=== PATIENT | male | born 1965 | race Asian ===

== ENCOUNTER 2018-02-16 04:36 | Inpatient (IN) | payer BC ==
[2018-02-16] VITALS (7 sets, daily range): BP systolic 125–158; BP diastolic 71–83
[~2018-02-16] VITALS: Ht 160 cm; Wt 58.1 kg
[2018-02-16] MEDS ORDERED: ONDANSETRON HCL 4MG/2ML INJ IV STA (04:41)
[2018-02-16] MEDS ORDERED: IPRATROPIUM BROMIDE (0.02%) 0.5MG/2.5ML NEB HHN STA (04:41)
[2018-02-16] MEDS ORDERED: LABETALOL HCL 20MG/4ML CARPUJECT IV ONE (04:45)
[2018-02-16] MEDS ORDERED: LABETALOL 5MG/ML SYR 20 MG/4 ML SYRINGE IV NR (05:00)
[2018-02-16] MEDS ORDERED: ALBUTEROL (0.083%) 2.5MG/3ML NEB HHN SCH (05:00)
[2018-02-16 05:11] LABS: CHLORIDE 92 mEq/L (98-107)
[2018-02-16 05:31] LABS: BG BASE EXCESS 0.4 mmol/L (-2.0-2.0); BG BILEVEL POS AIRWAY PRESSURE 18/5; BG CARBOXYHEMOGLOBIN 4.2 % (0.5-1.5); BG DEOXYHEMOGLOBIN 0.4 % (0.0-5.0); BG FRACTION INSPIRED OXYGEN 100; BG HCO3 ACT 24.9 mmol/L (22.0-26.0); BG METHEMOGLOBIN 0.3 % (0.0-1.5); BG OXYGEN SATURATION 99.6 % (92.0-98.5); BG OXYHEMOGLOBIN 95.1 % (94.0-97.0); BG PCO2 39.4 mmHg (35.0-45.0); BG PH 7.418 (7.350-7.450); BG PO2 464.1 mmHg (75.0-100.0); BG SAMPLE SITE LEFT BRACHIAL; BG TOTAL HEMOGLOBIN 9.5 g/dL (12.0-18.0); BG VENT MODE MASK - BIPAP
[2018-02-16 05:39] LABS: BASOPHILS % 0.9 % (0.0-2.0); EOSINOPHILS % 4.2 % (0.0-5.0); HEMATOCRIT. 31.3 % (42.0-52.0); HEMOGLOBIN. 10.4 g/dL (14.0-18.0); LYMPHOCYTES % 37.3 % (20.0-50.0); MEAN CORPUSCULAR HEMOGLOBIN 32.6 pg (28.0-32.0); MEAN CORPUSCULAR VOLUME 97.8 fL (80.0-94.0); MONOCYTES % 8.2 % (2.0-8.0); NEUTROPHILS % 49.4 % (40.0-76.0); PLATELET 257 x1000/uL (130-400); RED CELL DISTRIBUTION WIDTH 14.2 % (11.6-14.6)
[2018-02-16] MEDS ORDERED: IPRATROPIUM/ALBUTEROL 0.5-3(2.5)MG/3ML NEB INH PRN (08:15)
[2018-02-16] MEDS ORDERED: DIPHENHYDRAMINE 50MG/ML VIAL IV PRN (08:15)
[2018-02-16] MEDS ORDERED: NITROGLYCERIN 0.4MG TABLET SL SL PRN (08:15)
[2018-02-16] MEDS ORDERED: NA PHOS,M-B/NA PHOS,DI-BA ENEMA 118ML PR PRN (08:15)
[2018-02-16] MEDS ORDERED: ACETAMINOPHEN 325MG TABLET PO PRN (08:15)
[2018-02-16] MEDS ORDERED: GUAIFENESIN 200MG/10ML SUGAR FREE UDC PO PRN (08:15)
[2018-02-16] MEDS ORDERED: CLONIDINE 0.1MG TABLET PO PRN (08:15)
[2018-02-16] MEDS ORDERED: TRAMADOL 50MG TABLET PO PRN (08:15)
[2018-02-16] MEDS ORDERED: ONDANSETRON HCL 4MG/2ML INJ IV PRN (08:15)
[2018-02-16] MEDS ORDERED: MAGNESIUM/ALUMINUM HYDROXIDE/SIMETHICONE 30ML UDC PO PRN (08:15)
[2018-02-16] MEDS ORDERED: DOCUSATE SODIUM 100MG CAPSULE PO PRN (08:15)
[2018-02-16] MEDS ORDERED: LORAZEPAM 0.5MG TABLET PO PRN (08:15)
[2018-02-16] MEDS: ASPIRIN 325MG EC TABLET PO SCH (09:00)
[2018-02-16] MEDS: ENOXAPARIN 30MG/0.3ML SYR SUBCUT SCH (10:00)
[2018-02-16] MEDS: SEVELAMER CARBONATE 800 MG TABLET PO SCH ×3 (12:44→19:40)
[2018-02-16] MEDS: AMLODIPINE 10MG TABLET PO SCH (12:45)
[2018-02-16] MEDS: FAMOTIDINE 20MG TABLET PO SCH (12:46)
[2018-02-16] MEDS: FOLIC ACID/VITAMIN B COMP W-C TABLET PO SCH (12:46)
[2018-02-16 17:02] LABS: CREATINE KINASE 99 IU/L (39-308); CREATINE KINASE MB FRACTION < 1.0 ng/mL (0.5-3.6)
[2018-02-16] MEDS ORDERED: ZOLPIDEM TARTRATE 5MG TABLET PO PRN (21:00)
[2018-02-17] VITALS (8 sets, daily range): BP systolic 148–175; BP diastolic 82–93
[2018-02-17 00:55] LABS: CREATINE KINASE 89 IU/L (39-308); CREATINE KINASE MB FRACTION < 1.0 ng/mL (0.5-3.6)
[2018-02-17] MEDS: FOLIC ACID/VITAMIN B COMP W-C TABLET PO SCH (09:16)
[2018-02-17] MEDS: AMLODIPINE 10MG TABLET PO SCH (09:17)
[2018-02-17] MEDS: ASPIRIN 325MG EC TABLET PO SCH (09:17)
[2018-02-17] MEDS: SEVELAMER CARBONATE 800 MG TABLET PO SCH ×2 (09:46→15:03)
[2018-02-17] MEDS: FAMOTIDINE 20MG TABLET PO SCH (10:25)
[2018-02-17] MEDS: ENOXAPARIN 30MG/0.3ML SYR SUBCUT SCH (10:25)
== END 2018-02-17 15:35 | disposition home or self-care (01) | DRG 291 ==
LOC: ER 04:36 → 5EST 05:46 → EDBEDREQTM 05:49 → EDBEDREQSVC 05:49 → EDBEDREQ 05:49 → ENRESERV 07:06 → 5EST 14:52
PROVIDERS: ADMIT Internal Medicine; ATTEND Internal Medicine
PROC: 5A09357 Assistance with Respiratory Ventilation, Less than 24 Consecutive Hours, Continuous Positive Airway Pressure (ICD-10-PCS; principal; 2018-02-16)
PROC: 5A1D70Z Performance of Urinary Filtration, Intermittent, Less than 6 Hours Per Day (ICD-10-PCS; 2018-02-16)
DX: I13.2 Hypertensive heart and chronic kidney disease with heart failure and with stage 5 chronic kidney disease, or end stage renal disease (principal); J96.00 Acute respiratory failure, unspecified whether with hypoxia or hypercapnia; I50.33 Acute on chronic diastolic (congestive) heart failure; N18.6 End stage renal disease; I16.1 Hypertensive emergency; E87.1 Hypo-osmolality and hyponatremia; N25.81 Secondary hyperparathyroidism of renal origin; E11.40 Type 2 diabetes mellitus with diabetic neuropathy, unspecified; K73.9 Chronic hepatitis, unspecified; G25.81 Restless legs syndrome; D63.8 Anemia in other chronic diseases classified elsewhere; E11.22 Type 2 diabetes mellitus with diabetic chronic kidney disease; E83.51 Hypocalcemia; F17.210 Nicotine dependence, cigarettes, uncomplicated; I27.20 Pulmonary hypertension, unspecified; Z82.49 Family history of ischemic heart disease and other diseases of the circulatory system; Z83.3 Family history of diabetes mellitus; Z99.2 Dependence on renal dialysis
CPT/HCPCS: 36415; 36600; 71045; 80061; 82375; 82550; 82553; 82805; 82962; 83036; 83880; 84484; 93005; 93306; 93970; 94640; 94660; 96374; 96375; 99291; J1650; J2405; J3490; J7611